=== PATIENT | female | born 1950 | race Caucasian/White ===

== ENCOUNTER → 2017-09-28 | Day surgery (SDC) | payer OTHER ==
[~2017-09-28] MED LIST: GLYCOPYRROLATE 1 MG/5 ML VIAL. ONE; IV RINGERS,LACTATED 1000ML 1,000 ML IV SCH; LETR2.5T18 PO; LIDOCAINE 1% PF 2 ML VIAL. ID PRN; LIDOCAINE 2% PF Vial for OR 5 ML VIAL. ONE; LISI-334 PO; METH5TAB12 PO; MIDAZOLAM HCL/PF 2 MG/2 ML VIAL. IV PRN; PROPOFOL 40 ML IV ONE; VENL37.56 PO; fentaNYL PF VIAL 100 MCG/2 ML VIAL IV PRN
--- NOTE | 2017-09-28 11:39 | PDOC1 ---
History and Physical Date of Admission Date of Admission DATE: 09/28/17 TIME: 11:30 Source Source: Chart review, Patient History of Present Illness History of Present Illness 66 y/o female with FH of CRC in father and personal h/o polyps. Presents for surveillance. Last colonoscopy 2010. Heartburn and occasional dysphagia. Past Medical History Cardiovascular: HTN Heme/Onc: Cancer (breast) Psych: Anxiety, Depression Past Surgical History Past Surgical History: Tonsillectomy, Other (breast surgery) Family History Family History: Cancer (colon/father, breast/grandmother), Coronary Artery Disease, Diabetes, Hypertension, Stroke Social History Smoke: No ALCOHOL: none Drugs: None Current Medications Current Medications methylphenidate, venlafaxine, lisinopril, letrozole Allergies Allergies: Coded Allergies: Latex (Verified Allergy, unknown, 09/28/17) ROS Review of System Otherwise negative. Physical Exam General: Alert, Oriented X3, Cooperative, No acute distress Lungs: Clear to auscultation Heart: S1S2, RRR, no gallops, no murmurs Abdomen: Normal bowel sounds, Soft, No tenderness, No hepatosplenomegaly, No masses Rectal Exam: deferred (to procedure) Extremities: No cyanosis, No edema Skin: No significant lesion Neuro: Normal speech, Strength at 5/5 X4 ext, Normal tone, Sensation intact, Cranial nerves 3-12 NL, Reflexes 2+ Psych/Mental Status: Mental status NL, Mood NL Vitals Vitals See nursing record. VTE Prophylaxis Ordered VTE Prophylaxis Devices: No VTE Pharmacological Prophylaxi: No Assessment/Plan Assessment/Plan IMP: FH colon cancer/personal h/o polyps, due for surveillance. Intermittent dysphagia. PLAN: EGD/colonoscopy. FREDY TORO MD Sep 28, 2017 11:39
--- NOTE | 2017-09-28 12:39 | PDOC4 ---
PROCEDURE Procedure EGD/colonoscopy Indications: dysphagia/FH CRC, personal h/o polyps. Meds; per anesthesia Findings: E--LA grade A at 35cm. G--Normal D--normal to second portion. 52F Orozco w/o resistance. TISHA: normal --'Scope advanced to cecum. Prep good. Mucosa normal. No tic's, polyps, masses. Small IH's on retroflex. Tor. well. IMP: Reflux, mild, empirically dilated. Negative surveillance. REC: Colonoscopy in 5 years. F/u in 2 weeks. If still dysphagia, trial of PPI. FREDY TORO MD Sep 28, 2017 12:39
[2017-09-28 13:10] VITALS: BP 105/61
== END | disposition home or self-care (01) ==
LOC: SURG 11:28
PROVIDERS: ATTEND Internal Medicine Gastroenterology
DX: Z12.11 Encounter for screening for malignant neoplasm of colon (principal); K64.0 First degree hemorrhoids; K21.0 Gastro-esophageal reflux disease with esophagitis; I10 Essential (primary) hypertension; F32.9 Major depressive disorder, single episode, unspecified; F41.9 Anxiety disorder, unspecified; Z86.010 Personal history of colon polyps; Z85.3 Personal history of malignant neoplasm of breast; Z88.2 Allergy status to sulfonamides; Z91.040 Latex allergy status; Z98.890 Other specified postprocedural states; Z80.0 Family history of malignant neoplasm of digestive organs; Z82.49 Family history of ischemic heart disease and other diseases of the circulatory system; Z83.3 Family history of diabetes mellitus; Z82.3 Family history of stroke; Z80.3 Family history of malignant neoplasm of breast; Z79.899 Other long term (current) drug therapy; Z87.440 Personal history of urinary (tract) infections; M19.90 Unspecified osteoarthritis, unspecified site
CPT/HCPCS: 43235; 43450; 45378; J2001; J2704; J3490